=== PATIENT | female | born 1970 | race Caucasian/White ===

== ENCOUNTER 2018-12-15 21:00 | Emergency (ER) | payer MEDICAID ==
[~2018-12-15] VITALS: Ht 149.9 cm; Wt 76.6 kg
[2018-12-15 21:10] VITALS: Ht 149.9 cm; Wt 76.6 kg
[2018-12-15] MEDS ORDERED: ONDANSETRON (ODT) 4 MG TAB ODT STA (23:23)
--- NOTE | 2018-12-15 23:23 | ERD ---
ER Documentation Chief Complaint Chief Complaint N/V X 1 day HPI This is a 48-year-old female presents here in emergency department with complaints of nausea, vomiting multiple times with nonbilious nonbloody emesis today. Her last bowel movement was yesterday and it was normal. LMP: Last month. G6, . Denies headache, head injury, loss of consciousness, dizziness, neck pain, neck stiffness, throat pain, difficulty swallowing, difficulty breathing lying flat, shoulder pain, chest pain, back pain, abdominal pain, constipation, diarrhea, urinary symptoms, or possibility being , loss of bowel and gabriel dder control, trauma, injury, falls, difficulty walking due to pain, numbness or tingling sensation, calf pain, recent travel, recent major surgery in the last 3 weeks, calf pain, recent long travel, recent exposure to any illness, recent antibiotic use in the last 3 months, fever, chills, seizures. Past medical history: Appendicitis with appendectomy. Cholecystitis with cholecystectomy. Surgical history: Appendectomy. Cholecystectomy. Social: Denies smoking, use of alcoholic beverages, use of illegal drugs. ROS All systems reviewed and are negative except as per history of present illness. Medications Home Meds Active Scripts Ondansetron Hcl* (Zofran*) 4 Mg Tablet, 4 MG PO Q8H PRN for NAUSEA AND/OR VOMITING, #30 TAB Prov:PASILABAN,KLAR F 12/16/18 Ranitidine Hcl* (Zantac*) 150 Mg Tablet, 150 MG PO BID PRN for EPIGASTRIC PAIN, #60 TAB Prov:PASILABAN,KLAR F 12/16/18 Acetaminophen* (Tylophen*) 500 Mg Capsule, 1 CAP PO Q6H PRN for PAIN AND OR ELEVATED TEMP, #20 CAP Prov:PASILABAN,KLAR F 12/16/18 Allergies Allergies: Coded Allergies: No Known Allergy (Unverified , 12/15/18) Physical Exam Vitals Vital Signs Date Temp Pulse Resp B/P (MAP) Pulse Ox O2 O2 Flow FiO2 Time Delivery Rate 12/16/18 98.6 65 18 152/74 99 Room Air 01:12 (100) 12/15/18 99.6 82 18 166/77 97 21:10 (106) Physical Exam Const: No acute distress Head: Atraumatic Eyes: Normal Conjunctiva. Eyeballs are not sunken. No signs of severe dehydration. ENT: Normal External Ears, Nose and Mouth. Bilateral ears: TMs are not erythematous. No bleeding. No discharge. No hearing loss. No mastoid tenderness. Nose: There is no frontal or maxillary sinus tenderness palpation. Throat: Uvula is in midline and nondisplaced. Tonsils are +1 bilaterally without redness and without exudates. Tolerating secretions. Patent airway. Speaks full and clear sentences. No tripoding. Neck: Full range of motion. No meningismus. No nuchal rigidity. No signs of meningeal irritation. Resp: Clear to auscultation bilaterally Cardio: Regular rate and rhythm, no murmurs Abd: Soft, non tender, non distended. Normal bowel sounds. Negative Dunne sign. Negative Verbank sign (heel jar test). Negative psoas sign. Negative Rovsing sign. Able to jump 10 times without developing lower abdominal pain. No CVA tenderness. Ambulatory with steady gait and without pain to abdomen. Skin: No petechiae or rashes. No vesicular lesions. Color appears normal for ethnicity. No skin tenting. No signs of severe dehydration. Back: No midline or flank tenderness Ext: No cyanosis, or edema Neur: Awake and alert. No neurological deficits. Psych: Normal Mood and Affect Result Diagram: 12/15/18 2342 12/15/18 2342 Results 24 hrs Laboratory Tests Test 12/15/18 23:42 12/15/18 23:53 White Blood Count 9.7 10^3/ul Red Blood Count 4.50 10^6/ul Hemoglobin 11.5 g/dl Hematocrit 36.1 % Mean Corpuscular Volume 80.2 fl Mean Corpuscular Hemoglobin 25.6 pg Mean Corpuscular Hemoglobin Concent 31.9 g/dl Red Cell Distribution Width 13.9 % Platelet Count 245 10^3/UL Mean Platelet Volume 9.9 fl Immature Granulocytes % 0.300 % Neutrophils % 77.2 % Lymphocytes % 17.0 % Monocytes % 5.0 % Eosinophils % 0.1 % Basophils % 0.4 % Nucleated Red Blood Cells % 0.0 /100WBC Immature Granulocytes # 0.030 10^3/ul Neutrophils # 7.5 10^3/ul Lymphocytes # 1.7 10^3/ul Monocytes # 0.5 10^3/ul Eosinophils # 0.0 10^3/ul Basophils # 0.0 10^3/ul Nucleated Red Blood Cells # 0.0 10^3/ul Prothrombin Time 12.8 Sec Prothrombin Time Ratio 1.0 INR International Normalized Ratio 0.95 Activated Partial Thromboplast Time 24.3 Sec Urine Color YELLOW Urine Clarity SLIGHTLY CLOUDY Urine pH 5.0 Urine Specific [place] 1.026 Urine Ketones 2+ mg/dL Urine Nitrite NEGATIVE mg/dL Urine Bilirubin NEGATIVE mg/dL Urine Urobilinogen NEGATIVE mg/dL Urine Leukocyte Esterase TRACE David/ul Urine Microscopic RBC 8 /HPF Urine Microscopic WBC 17 /HPF Urine Squamous Epithelial Cells FEW /HPF Urine Mucus MANY /HPF Urine Hemoglobin NEGATIVE mg/dL Urine Glucose 3+ mg/dL Urine Total Protein NEGATIVE mg/dl Sodium Level 139 mmol/L Potassium Level 4.0 mmol/L Chloride Level 103 mmol/L Carbon Dioxide Level 25 mmol/L Anion Gap 11 Blood Urea Nitrogen 11 mg/dl Creatinine 0.56 mg/dl Est Glomerular Filtrat Rate mL/min > 60 mL/min Glucose Level 185 mg/dl Calcium Level 9.2 mg/dl Total Bilirubin 0.7 mg/dl Direct Bilirubin 0.00 mg/dl Indirect Bilirubin 0.7 mg/dl Aspartate Amino Transf (AST/SGOT) 22 IU/L Alanine Aminotransferase (ALT/SGPT) 23 IU/L Alkaline Phosphatase 70 IU/L Troponin I < 0.012 ng/ml Total Protein 7.4 g/dl Albumin 4.3 g/dl Globulin 3.10 g/dl Albumin/Globulin Ratio 1.38 Amylase Level 72 U/L Lipase 37 U/L POC Beta HCG, Qualitative NEGATIVE Current Medications Medications Dose Sig/[place] Start Time Status Last (Trade) Ordered Route PRN Stop Time Admin Dose Reason Admin Ondansetron 4 mg ONCE STAT 12/15/18 DC 12/15/18 HCl (Zofran ODT 23:23 23:53 Odt) 12/15/18 23:25 40 ml ONCE ONCE 12/15/18 DC 12/15/18 Miscellaneous PO 23:30 23:53 Medication 12/15/18 23:31 (Gi Cocktail (2)) Famotidine 40 mg ONCE ONCE 12/15/18 DC 12/15/18 (Pepcid) PO 23:30 23:53 12/15/18 23:31 Procedures/MDM Diagnostic tests: EKG: Sinus rhythm with a ventricular rate of 71 bpm. No STEMI. Read by supervising physician. POC urine : Negative. Urinalysis: Reviewed. Culture urine: Sent. Blood works: Reviewed. Treatment: Zofran. Pepcid. GI cocktail. Re-evaluation: No drooling. No tripoding. Able to control tongue movement. Tolerating liquids by mouth. Speaks full and clear sentences. No signs of airway obstruction. No episode of emesis in the emergency department. Negative Dunne sign. Negative Arianna sign (heel jar test). Negative psoas sign. Negative Rovsing sign. Able to jump 3 times without developing lower abdominal pain. No CVA tenderness. Ambulatory with steady gait and without pain to abdomen. Stated that she feels much better this time and that she is ready to go home. Patient and family member stated that they are comfortable to go home. Differential diagnosis I have low suspicion for acute myocardial infarction, acute coronary syndrome, pancreatitis, cholecystitis, diverticulitis, bowel obstruction, aortic aneurysm, AAA, appendicitis, ruptured appendicitis, pyelonephritis, nephrolithiasis, obs tructing kidney stones, septic stone, severe dehydration. Final diagnosis: Gastritis. GERD. Prescription: Tylenol. Zofran. Ranitidine. Follow-up with PCP in the next 24-48 hours. Come back here in the emergency department for any new symptoms or any worsening symptoms. All questions and concerns were answered. Patient and family members verbalized understanding and agreed with plan of care. Hemodynamically stable on discharge. Departure Diagnosis: Primary Impression: Nausea and vomiting Condition: Stable Additional Instructions: Follow-up with PCP in the next 24-48 hours. Come back here in the emergency department for any new symptoms or any worsening symptoms. CRISELDA ANDERSEN Dec 15, 2018 23:23
[2018-12-15] MEDS ORDERED: LIDOCAINE/MYLANTA 40 ML BTL PO ONE (23:30)
[2018-12-15] MEDS ORDERED: FAMOTIDINE 20 MG TAB PO ONE (23:30)
[2018-12-16] MEDS ORDERED: ACET500C5 PO (01:01)
[2018-12-16] MEDS ORDERED: ONDA4TAB8 PO (01:02)
[2018-12-16] MEDS ORDERED: RANI150T35 PO (01:02)
[2018-12-16 01:12] VITALS: BP 152/74; PULSE 65; RESP 18
== END 2018-12-16 01:13 | disposition home or self-care (01) ==
LOC: FTE 21:00
DX: K29.70 Gastritis, unspecified, without bleeding (principal); K21.9 Gastro-esophageal reflux disease without esophagitis
CPT/HCPCS: 36415; 80053; 81001; 81025; 82150; 83690; 84484; 85025; 85610; 85730; 87086; 93005; Z7502; Z7610